=== PATIENT | male | born 1955 ===

== ENCOUNTER 2017-08-25 23:23 | Emergency (ER) | payer OTHER ==
[~2017-08-25] VITALS: Ht 172.7 cm; Wt 95.7 kg
[2017-08-25] MEDS ORDERED: COZAAR50 MG (23:28)
[2017-08-26] MEDS ORDERED: KETO10TA2 PO (03:51)
[2017-08-26] MEDS ORDERED: ZITHROMAX500 MG PO (03:51)
[2017-08-26] MEDS ORDERED: CLINDAMYCIN HC300 MG PO (10:42)
== END 2017-08-26 03:59 | disposition home or self-care (01) ==
LOC: ER 23:23
DX: K11.20 Sialoadenitis, unspecified (principal)

== ENCOUNTER → 2017-08-26 | Outpatient (CLI) | payer OTHER ==
[~2017-08-26] VITALS: Ht 172.7 cm; Wt 95.7 kg
[~2017-08-26] MED LIST: CLINDAMYCIN HC300 MG PO; COZAAR50 MG; KETO10TA2 PO; ZITHROMAX500 MG PO
== END | disposition home or self-care (01) ==
LOC: OFIC 805 08:45
DX: R22.1 Localized swelling, mass and lump, neck (principal); K11.20 Sialoadenitis, unspecified; J34.2 Deviated nasal septum; M27.2 Inflammatory conditions of jaws

== ENCOUNTER 2017-08-31 08:19 | Outpatient (CLI) | payer OTHER ==
[~2017-08-31] VITALS: Ht 152.4 cm; Wt 95.7 kg
== END 2017-08-31 08:40 | disposition home or self-care (01) ==
LOC: OFIC 805 08:19
DX: K11.21 Acute sialoadenitis (principal); R22.1 Localized swelling, mass and lump, neck; M27.2 Inflammatory conditions of jaws

== ENCOUNTER 2022-07-26 10:51 | Outpatient (CLI) | payer OTHER | END 2022-07-26 10:55 | disposition home or self-care (01) | LOC: RAD 10:51 | DX: R06.00 Dyspnea, unspecified (principal); J45.30 Mild persistent asthma, uncomplicated; J20.9 Acute bronchitis, unspecified; I10 Essential (primary) hypertension; J32.9 Chronic sinusitis, unspecified ==